=== PATIENT | male | born 1965 | race African-American/Black ===

== ENCOUNTER 2016-12-29 00:55 | Inpatient (IN) | payer OTHER ==
[2016-12-29] VITALS (7 sets, daily range): BP systolic 115–142; BP diastolic 63–85; PULSE 66–97; RESP 18–19; TEMP 98.7–99; O2SAT 94–98
[~2016-12-29] VITALS: Ht 177.8 cm; Wt 67.1 kg
[2016-12-29 03:51] LABS: AUTOMATED NEUTROPHIL # 3.1 TH/MM3 (1.8-7.7); BASOPHIL % 0.4 % (0.0-2.0); EOSINOPHIL # 0.2 TH/MM3 (0-0.4); EOSINOPHIL % 3.4 % (0.0-4.0); HEMATOCRIT 41.3 % (39.0-51.0); HEMO FLAGS DIFF FINAL; LYMPH % 41.3 % (9.0-44.0); LYMPHOCYTE # 2.8 TH/MM3 (1.0-4.8); MEAN CELL VOLUME 85.4 FL (80.0-100.0); MONO % 9.5 % (0.0-8.0); NEUT % 45.4 % (16.0-70.0); PLATELET COUNT 253 TH/MM3 (150-450); RED BLOOD COUNT 4.84 MIL/MM3 (4.50-5.90); RED CELL DISTRIBUTION WIDTH 14.1 % (11.6-17.2); WHITE BLOOD COUNT 6.8 TH/MM3 (4.0-11.0)
[2016-12-29 04:07] LABS: ALT (GPT) 81 U/L (12-78); ANION GAP 10 MEQ/L (5-15); AST (GOT) 57 U/L (15-37); BICARBONATE 27.7 MEQ/L (21.0-32.0); BLOOD UREA NITROGEN 8 MG/DL (7-18); CHLORIDE 105 MEQ/L (98-107); GLOMERULAR FILTRATION RATE 80 ML/MIN (>89); POTASSIUM 4.1 MEQ/L (3.5-5.1); SODIUM (NA) 143 MEQ/L (136-145)
[2016-12-29 04:09] LABS: ALKALINE PHOSPHATASE 94 U/L (45-117); TOTAL BILIRUBIN ADULT 0.3 MG/DL (0.2-1.0)
[2016-12-29 04:14] LABS: ACETAMINOPHEN LESS THAN 2.0 MCG/ML (10.0-30.0)
--- NOTE | 2016-12-29 04:54 | PD ---
HPI Chief Complaint: Psychiatric Symptoms Time Seen by Provider: 04:44 Travel History International Travel<30 days: No Contact w/Intl Traveler<30days: No Traveled to known affect area: No History of Present Illness HPI 51-year-old black male presents to emergency department under Alejandra act by . The patient states that he's been feeling increasingly depressed and having suicidal thoughts. He states that he slipped in the [facility] area for approximately 6 years. He states that friends houses on various occasions. He just was incarcerated a few weeks ago after being involved in an altercation. He states that he had been off his medications for his bipolar disorder as well as schizophrenia. He was started back on his medicines and given a one-week supply. He ran out of his medications he did not follow-up. He states that he is having more problems with his bipolar. When he was discharged he was advised to follow-up with Luis Thompson/diego. The patient admits to a history of substance abuse including marijuana, cocaine, alcohol and tobacco. The patient does not have any current plan on self-harm.. The patient denies any active medical complaints. No homicidal ideation. No toxic ingestion. [facility] Past Medical History Narrative Medical Bipolar, schizophrenia Bipolar Disorder: Yes Hypertension: Yes Schizophrenia: Yes Tetanus Vaccination: < 5 Years Influenza Vaccination: No Past Surgical History Surgical History: No Previous Surgery Social History Alcohol Use: Yes Tobacco Use: Yes Substance Use: Yes Review of Systems Except as stated in HPI: all other systems reviewed are Neg Psychiatric: Positive: Depression, Suicidal Ideations, Disorder of Thought, Mood Disorder, Substance Abuse, Other, No: Anxiety Physical Exam Narrative GENERAL: Well-nourished, well-developed patient. The patient resting comfortably examination room sleeping. SKIN: Warm and dry. HEAD: Normocephalic and atraumatic. EYES: No scleral icterus. No injection or drainage. ENT: No nasal drainage noted. Mucous membranes pink. Airway patent. NECK: Supple, trachea midline. Moves head freely without obvious discomfort. CARDIOVASCULAR: Regular rate and rhythm without murmurs, gallops, or rubs. RESPIRATORY: Breath sounds equal bilaterally. No accessory muscle use. GASTROINTESTINAL: Abdomen soft, non-tender, nondistended. EXTREMITIES: No cyanosis or edema. BACK: Nontender without obvious deformity. No CVA tenderness. NEURO: Patient is alert and oriented. no sensorimotor deficits. Nonfocal. Normal speech. PSYCH: No delusions. No auditory or visual hallucinations. Data Data Last Documented VS Vital Signs Date Time Temp Pulse Resp B/P Pulse Ox O2 Delivery O2 Flow Rate FiO2 12/29/16 01:55 98.7 97 18 140/76 98 Orders Complete Blood Count With Diff (12/29/16 03:20) Comprehensive Metabolic Panel (12/29/16 03:20) Psych Screen (12/29/16 03:20) Drug Screen, Random Urine (12/29/16 03:20) Alcohol (Ethanol) (12/29/16 03:20) Salicylates (Aspirin) (12/29/16 03:20) Tylenol (Acetaminophen) (12/29/16 03:20) Valproic Acid (Depakene) (12/29/16 04:37) Labs Laboratory Tests Test 12/29/16 01:15 White Blood Count 6.8 TH/MM3 Red Blood Count 4.84 MIL/MM3 Hemoglobin 14.0 GM/DL Hematocrit 41.3 % Mean Corpuscular Volume 85.4 FL Mean Corpuscular Hemoglobin 29.0 PG Mean Corpuscular Hemoglobin 34.0 % Concent Red Cell Distribution Width 14.1 % Platelet Count 253 TH/MM3 Mean Platelet Volume 7.9 FL Neutrophils (%) (Auto) 45.4 % Lymphocytes (%) (Auto) 41.3 % Monocytes (%) (Auto) 9.5 % Eosinophils (%) (Auto) 3.4 % Basophils (%) (Auto) 0.4 % Neutrophils # (Auto) 3.1 TH/MM3 Lymphocytes # (Auto) 2.8 TH/MM3 Monocytes # (Auto) 0.7 TH/MM3 Eosinophils # (Auto) 0.2 TH/MM3 Basophils # (Auto) 0.0 TH/MM3 CBC Comment DIFF FINAL Differential Comment Sodium Level 143 MEQ/L Potassium Level 4.1 MEQ/L Chloride Level 105 MEQ/L Carbon Dioxide Level 27.7 MEQ/L Anion Gap 10 MEQ/L Blood Urea Nitrogen 8 MG/DL Creatinine 1.18 MG/DL Estimat Glomerular Filtration 80 ML/MIN Rate Random Glucose 82 MG/DL Calcium Level 9.2 MG/DL Total Bilirubin 0.3 MG/DL Aspartate Amino Transf 57 U/L (AST/SGOT) Alanine Aminotransferase 81 U/L (ALT/SGPT) Alkaline Phosphatase 94 U/L Total Protein 8.4 GM/DL Albumin 3.8 GM/DL Salicylates Level 3.4 MG/DL Acetaminophen Level LESS THAN 2.0 MCG/ML Ethyl Alcohol Level 211 MG/DL MDM Medical Decision Making Medical Screen Exam Complete: Yes Emergency Medical Condition: Yes Medical Record Reviewed: Yes Interpretation(s) Laboratory Tests Test 12/29/16 01:15 White Blood Count 6.8 TH/MM3 Red Blood Count 4.84 MIL/MM3 Hemoglobin 14.0 GM/DL Hematocrit 41.3 % Mean Corpuscular Volume 85.4 FL Mean Corpuscular Hemoglobin 29.0 PG Mean Corpuscular Hemoglobin 34.0 % Concent Red Cell Distribution Width 14.1 % Platelet Count 253 TH/MM3 Mean Platelet Volume 7.9 FL Neutrophils (%) (Auto) 45.4 % Lymphocytes (%) (Auto) 41.3 % Monocytes (%) (Auto) 9.5 % Eosinophils (%) (Auto) 3.4 % Basophils (%) (Auto) 0.4 % Neutrophils # (Auto) 3.1 TH/MM3 Lymphocytes # (Auto) 2.8 TH/MM3 Monocytes # (Auto) 0.7 TH/MM3 Eosinophils # (Auto) 0.2 TH/MM3 Basophils # (Auto) 0.0 TH/MM3 CBC Comment DIFF FINAL Differential Comment Sodium Level 143 MEQ/L Potassium Level 4.1 MEQ/L Chloride Level 105 MEQ/L Carbon Dioxide Level 27.7 MEQ/L Anion Gap 10 MEQ/L Blood Urea Nitrogen 8 MG/DL Creatinine 1.18 MG/DL Estimat Glomerular Filtration 80 ML/MIN Rate Random Glucose 82 MG/DL Calcium Level 9.2 MG/DL Total Bilirubin 0.3 MG/DL Aspartate Amino Transf 57 U/L (AST/SGOT) Alanine Aminotransferase 81 U/L (ALT/SGPT) Alkaline Phosphatase 94 U/L Total Protein 8.4 GM/DL Albumin 3.8 GM/DL Salicylates Level 3.4 MG/DL Acetaminophen Level LESS THAN 2.0 MCG/ML Ethyl Alcohol Level 211 MG/DL Differential Diagnosis MDM: High Differential diagnoses: Schizophrenia, schizoaffective disorder, bipolar, anxiety, depression, adjustment reaction, mood disorder NOS, ODD, depressive disorder NOS, dementia, dementia with agitation, psychosis NOS, substance induced mood disorder, intermittent explosive disorder, Asperger syndrome, infection,electrolyte abnormality, malingering. Narrative Course Mental health screening discussed with the patient. Psychiatric screen ordered. The patient is been medically cleared. This is bipolar-depressed, substance abuse Diagnosis Primary Impression: Bipolar affect, depressed Additional Impression: Substance abuse Condition: Stable Fernando Lin Dec 29, 2016 04:53
[2016-12-29] MEDS ORDERED: ZYPR2.5T2 PO (06:22)
[2016-12-29] MEDS ORDERED: DIVA250ER PO (06:22)
[2016-12-29 06:49] LABS: AMPHETAMINE, URINE NEG (NEG); BARBITURATES, URINE NEG (NEG); COCAINE, URINE POS (NEG)
[2016-12-30 02:00] VITALS: BP 145/75; PULSE 61; RESP 18; O2SAT 97
[2016-12-30 06:17] VITALS: BP 127/72; PULSE 76; RESP 17; O2SAT 98
[2016-12-30 11:44] VITALS: BP 136/78; PULSE 74; RESP 16; TEMP 97.6
[2016-12-30] MEDS ORDERED: ACETAMINOPHEN 325 MG TAB PO PRN (15:45)
[2016-12-30] MEDS ORDERED: ALUMINUM/MAGNESIUM/SIMETH 30 ML CUP PO PRN (15:45)
[2016-12-30] MEDS ORDERED: LORazepam 2 MG/ML VIAL IM PRN (15:45)
[2016-12-30] MEDS ORDERED: MAGNESIUM HYDROXIDE SUSP 30 ML CUP PO PRN (15:45)
[2016-12-30] MEDS ORDERED: LORazepam 1 MG TAB PO PRN (15:45)
[2016-12-31 05:33] VITALS: BP 149/82; PULSE 70; RESP 18; TEMP 98.8; O2SAT 99
[2016-12-31] MEDS: NICOTINE 21 MG/24 HR PATCH T-DERMAL SCH (08:35)
[2016-12-31 08:57] LABS: ANION GAP 7 MEQ/L (5-15); BICARBONATE 31.9 MEQ/L (21.0-32.0); BLOOD UREA NITROGEN 9 MG/DL (7-18); CHLORIDE 101 MEQ/L (98-107); GLOMERULAR FILTRATION RATE 77 ML/MIN (>89); POTASSIUM 4.1 MEQ/L (3.5-5.1); SODIUM (NA) 140 MEQ/L (136-145)
[2016-12-31 09:01] LABS: HDL CHOLESTEROL 63.9 MG/DL (40.0-60.0); LDL CHOLESTEROL 102 MG/DL (0-99)
[2016-12-31 10:07] LABS: HEMOGLOBIN A1a 0.8 %; HEMOGLOBIN A1b 1.4 %; HEMOGLOBIN Ao 85.9 %; HEMOGLOBIN P3 3.4 %
--- NOTE | 2016-12-31 11:08 | HHI.HP ---
Provisional Diagnosis Admission Date Dec 30, 2016 at 15:21 [place]. Bipolar disorder, mixed type without psychotic features. Certification of Person's Competence To Provide Express and Informed Consent I have personally examined Niko Fung , a person being served at [facility] on, Dec 31, 2016 10:59. Express and informed consent means consent voluntarily given in writing, by a competent person, after sufficient explanation and disclosure of the subject matter involved to enable the person to make a knowing and willful decision without any element of force, fraud, deceit, duress, or other form of constraint or coercion. This person is 18 years of age or older, is not now known to be incompetent to consent to treatment with a guardian advocate, and does not have a health care surrogate or proxy currently making medical treatment decisions. I have found this person to be one of the following: [x] Competent to provide express and informed consent, as defined above, for voluntary admission to this facility and is competent to provide express and informed consent for treatment. He/she has the consistent capacity to make well reasoned, willful, and knowing decisions concerning his or her medical or mental health treatment. The person fully and consistently understands the purpose of the admission for examination/placement and is fully capable of personally exercising all rights assured [place] Incompetent to provide express and informed consent to voluntary admission, and this is incompetent to provide express and informed consent to treatment. The person must be transferred to involuntary status and a petition for a guardian advocate filed with the Circuit Court. [] Refusing to provide express and informed consent to voluntary admission but is competent to provide express and informed consent for treatment. The person must be discharged or transferred to involuntary status. Form shall be completed within 24 hours of a person's arrival at the receiving facility and filed in the clinical record of each person: 1. Admitted on a voluntary basis 2. Permitted to provide express and informed consent to his/her own treatment 3. Allowed to transfer from involuntary to voluntary status 4. Prior to permitting a person to consent to his or her own treatment after having been previously found incompetent to consent to treatment. History of Present Illness Capacity: Has Capacity HPI Patient was apparently Roberts acted for making some type of suicidal threat. He is a 51-year-old male with a long history of bipolar disorder and/or schizophrenia. Apparently he and his got into a verbal altercation and they are no longer together. He is also unemployed and now living on the streets. He has been unable to obtain his medications and therefore has not been taking any of his standard psychotropic meds for days. At this point he is depressed, homeless, without social support and feeling suicidal. He is willing to verbally contract for safety while in the hospital. However he describes symptoms of anhedonia, loss of energy, loss of motivation, diminished self-esteem, social withdrawal, impaired sleep and impaired appetite, and difficulty with concentration and memory. He would like to return to taking his Zyprexa at bedtime, 10 mg, and this physician agrees. However he wants to try to be stabilized without the use of Depakote and again this physician agrees. Finally, the patient again denies any place to stay and does not feel he has family support that we can contact Review of Systems ROS Limitations: Clinical Condition Except as stated in HPI: all other systems reviewed are Neg Past Psych History Psychological trauma history Denied. Violence risk - others (6 mos) Minimal Violence risk - self (6 mos) Moderate Substance Abuse History Drugs/Alcohol past 12 months Patient does admit to a history of cocaine abuse and marijuana abuse as well as alcohol abuse. Past Family Social History Coded Allergies: No Known Allergies (Unverified , 12/29/16) PT DENIES ANY ALLERGIES Reported Medications Divalproex ER (Depakote ER)250 Mg Ieoph992 Mg PO DAILY #30 TAB Ref 0 12/29/16 Olanzapine (Zyprexa)2.5 Mg Tab2.5 Mg PO BID #60 TAB Ref 0 12/29/16 Current Medications Medications (Trade) Dose Ordered Sig/Kwesi Route Start Time Stop Time Status Last Admin (Ativan) 1 mg Q6H PRN PO 12/30/16 15:45 (Ativan Inj) 1 mg Q6H PRN IM 12/30/16 15:45 (Tylenol) 650 mg Q4H PRN PO 12/30/16 15:45 (Milk Of Magnesia Liq) 30 ml DAILY PRN PO 12/30/16 15:45 (Mag-Al Plus Susp Liq) 30 ml Q6H PRN PO 12/30/16 15:45 (Habitrol 21 Mg Patch.24 Hr) 1 patch DAILY T-DERMAL 12/31/16 09:00 Miscellaneous Information 1 HS T-DERMAL 12/31/16 21:00 Family History Positive for mood disorder. Social History See history of present illness. The patient and his have broken up. He is homeless. He has no job. He has a reported income from Social Security disability. He has abused cocaine and alcohol and marijuana. Patient's Strengths (min. 2) Verbal and resilient. Physical Exam GENERAL: SKIN: Warm and dry. HEAD: Normocephalic. EYES: No scleral icterus. No injection or drainage. NECK: Supple, trachea midline. No JVD or lymphadenopathy. CARDIOVASCULAR: Regular rate and rhythm without murmurs, gallops, or rubs. RESPIRATORY: Breath sounds equal bilaterally. No accessory muscle use. GASTROINTESTINAL: Abdomen soft, non-tender, nondistended. MUSCULOSKELETAL: No cyanosis, or edema. BACK: Nontender without obvious deformity. No CVA tenderness. Vital Signs Vital Signs Date Time Temp Pulse Resp B/P Pulse Ox O2 Delivery O2 Flow Rate FiO2 12/31/16 05:33 98.8 70 18 149/82 99 12/30/16 11:44 Room Air Mental Status Examination Speech: Unremarkable Orientation: x3 Memory: Unremarkable Thought Process: Organized, Goal Directed Thought Content: Unremarkable Hallucination Type: None Attention and Concentration: Good Suicidal Ideation: Yes Previous Suicide Attempts: Yes Homicidal Ideation: No Previous Homicide Attempts: No Insight: Fair Judgement: WNL, Unrealistic Affect: Anxious, Sad Affect if Inappropriate: Blunt Mood: Sad Motor Activity: Normal gait Assessment & Plan Problem List: (1) Bipolar affect, depressed ICD Code: F31.30 Assessment & Plan Estimated LOS: days patient has been off his medications and become increasingly depressed and suicidal. He is requesting we put him back on Zyprexa 10 mg daily at bedtime and this physician agrees. He will be observed for other factors contributing to his depression including drugs and alcohol. He will also be evaluated for psychotic symptoms because he has demonstrated psychosis in the past. We will evaluate him for the need for Depakote. Its anticipated, the hospital for 3-4 days. Problem Qualifiers (1) Bipolar affect, depressed: Michael Fisher MD Dec 31, 2016 11:08
[2016-12-31 18:00] VITALS: BP 149/75; PULSE 75; RESP 18; TEMP 98.3; O2SAT 98
[2016-12-31] MEDS: OLANZapine 10 MG TAB PO SCH (21:00)
[2016-12-31] MEDS: REMOVE OLD NICOTINE PATCH T-DERMAL SCH (21:00)
[2017-01-01 05:46] VITALS: BP 148/85; PULSE 60; RESP 17; TEMP 97.6; O2SAT 100
[2017-01-01] MEDS: NICOTINE 21 MG/24 HR PATCH T-DERMAL SCH (09:00)
--- NOTE | 2017-01-01 13:20 | HHI.PYPN ---
Subjective Remarks Pt seen and discussed with staff. He remains depressed and dysphoric but reports that he is tolerating olanzapine and slept well last night. He reports decreased irritability today. No medication side effects. He denies SI/HI today. Review of Systems Psychiatric: COMPLAINS OF: Depression Objective Alert: Yes [place]: Person, Place, Date, Situation Mood: Depressed Affect: Restricted Memory Intact: Immediate, Recent, Remote Hallucinations: Other (none) Delusions: No Delusion Type: Other (none) Suicidal: Ideation (denies) Homicidal: Ideation (denies) Insight/Judgement poor Vitals/IOs Vital Signs Date Time Temp Pulse Resp B/P Pulse Ox O2 Delivery O2 Flow Rate FiO2 01/01/17 05:46 97.6 60 17 148/85 100 12/30/16 11:44 Room Air Assessment & Plan Problem List: (1) Bipolar affect, depressed ICD Code: F31.30 Assessment & Plan Continue current tx plan. Estimated LOS: days Justification for Cont. Inpt. observation for safety. Monitoring as started new medication. Problem Qualifiers (1) Bipolar affect, depressed: Marija Méndez MD Jan 01, 2017 13:20
[2017-01-01 15:15] VITALS: BP 126/78; PULSE 77; RESP 18; TEMP 98.7; O2SAT 100
[2017-01-01 19:54] VITALS: BP 126/78; PULSE 77; RESP 18; TEMP 98.7
[2017-01-01] MEDS: OLANZapine 10 MG TAB PO SCH (20:23)
[2017-01-01] MEDS: REMOVE OLD NICOTINE PATCH T-DERMAL SCH (21:00)
[2017-01-02 05:56] VITALS: BP 136/80; PULSE 73; RESP 18; TEMP 98.2; O2SAT 99
[2017-01-02] MEDS: NICOTINE 21 MG/24 HR PATCH T-DERMAL SCH (08:51)
[2017-01-02 16:28] VITALS: BP 123/74; PULSE 81; RESP 18; TEMP 98.2; O2SAT 99
[2017-01-02] MEDS: REMOVE OLD NICOTINE PATCH T-DERMAL SCH (20:33)
[2017-01-02] MEDS: OLANZapine 10 MG TAB PO SCH (20:33)
--- NOTE | 2017-01-02 23:22 | HHI.PYPN ---
Subjective Remarks Pt seen and discussed with staff. He remains withdrawn and depressed but reports mood improving and he denies SI/HI. No medication side effects. Objective Alert: Yes [place]: Person, Place, Date, Situation Mood: Depressed Affect: Restricted Memory Intact: Immediate, Recent, Remote Hallucinations: Other (none) Delusions: No Delusion Type: Other (none) Suicidal: Ideation (denies) Homicidal: Ideation (denies) Insight/Judgement poor Vitals/IOs Vital Signs Date Time Temp Pulse Resp B/P Pulse Ox O2 Delivery O2 Flow Rate FiO2 01/02/17 16:28 98.2 81 18 123/74 99 12/30/16 11:44 Room Air Assessment & Plan Problem List: (1) Bipolar affect, depressed ICD Code: F31.30 Assessment & Plan Continue current tx plan. Estimated LOS: days Justification for Cont. Inpt. monitoring for saety Problem Qualifiers (1) Bipolar affect, depressed: Marija Méndez MD Jan 02, 2017 23:22
[2017-01-03 06:44] VITALS: BP 147/79; PULSE 78; RESP 20; TEMP 97.9; O2SAT 97
[2017-01-03] MEDS: NICOTINE 21 MG/24 HR PATCH T-DERMAL SCH (09:00)
[2017-01-03] MEDS ORDERED: OLAN10TA PO (10:36)
--- NOTE | 2017-01-03 10:44 | HHI.DS ---
Psychiatry Discharge Summary Inpatient Psychiatric care?: Yes Advance Directive: No Reason Not Provided: none Mental Health AdvanceDirective: No Health Care Proxy: No Admission Admission Date Dec 30, 2016 at 15:21 Admission Diagnosis: (1) Bipolar affect, depressed ICD Code: F31.30 Brief History Patient was apparently Roberts acted for making some type of suicidal threat. He is a 51-year-old male with a long history of bipolar disorder and/or schizophrenia. Apparently he and his got into a verbal altercation and they are no longer together. He is also unemployed and now living on the streets. He has been unable to obtain his medications and therefore has not been taking any of his standard psychotropic meds for days. At this point he is depressed, homeless, without social support and feeling suicidal. He is willing to verbally contract for safety while in the hospital. However he describes symptoms of anhedonia, loss of energy, loss of motivation, diminished self-esteem, social withdrawal, impaired sleep and impaired appetite, and difficulty with concentration and memory. He would like to return to taking his Zyprexa at bedtime, 10 mg, and this physician agrees. However he wants to try to be stabilized without the use of Depakote and again this physician agrees. Finally, the patient again denies any place to stay and does not feel he has family support that we can contact Tobacco Use In Past 30 Days: 5 or More Cigarettes/Day Alcohol Use: Monthly or Less Hospital Course Patient did well during his hospital course. He was placed on Zyprexa 10 mg per day. He participated actively in individual and group therapies. At the time of discharge he no longer met inpatient criteria and wanted to return to his mother's home. He was referred for outpatient follow up. Results Blood Pressure 147 / 79 Vital Signs Date Time Temp Pulse Resp B/P Pulse Ox O2 Delivery O2 Flow Rate FiO2 01/03/17 06:44 97.9 78 20 147/79 97 12/30/16 11:44 Room Air Laboratory Results Test 12/31/16 08:12 Hemoglobin A1c 5.3 % (4.3-6.0) Triglycerides Level 138 MG/DL (42-150) Cholesterol Level 193 MG/DL (120-200) LDL Cholesterol 102 MG/DL (0-99) HDL Cholesterol 63.9 MG/DL (40.0-60.0) Summary of Procedures None Pending results at discharge: No Medications # of Antipsychotic meds at D/C: 1 Appropriate >1 Antipsych meds?: 1 Approp Antipsych med options 1 - Minimum of three failed multiple trials of monotherapy. 2 - Documented plan to taper to monotherapy due to previous use of multiple meds OR cross-taper in progress at D/C. 3 - Documentation of augmentation of Clozapine. 4 - Justification other than those listed in allowable values 1-3, document here : Discharge Discharge Date: Jan 03, 2017 Discharge Diagnosis: (1) Bipolar affect, depressed Diagnosis: Principal ICD Code: F31.30 Mental Status Exam at Disch Patient was pleasant and cooperative at the time of discharge. He reports feeling significantly improved since his admission. He is stabilized on his olanzapine. He plans to live with his mother and can seek follow up treatment from her home, as an outpatient. He contracted for safety and shows no evidence of psychotic thinking. His cognition is intact. Pt Condition on Discharge: Stable Discharge Disposition: Discharge Home Discharge Instructions Diet Instructions: As Tolerated, No Restrictions Activities you can perform: Regular-No Restrictions Discharge Time <= 30 minutes Discharge/Advance Care Plan Health Problems: (1) Bipolar affect, depressed Goals to promote your health * To prevent worsening of your condition and complications * To maintain your health at the optimal level Directions to meet your goals Take your medications as prescribed Follow your dietary instruction Follow activity as directed Keep your appointments as scheduled Take your immunizations and boosters as scheduled If your symptoms worsen call your PCP, if no PCP go to Urgent Care Center or Emergency Room For 23/05 questions related to your inpatient stay or results of tests pending at discharge, please contact Dr. Michael Fisher at Smoking is Dangerous to Your Health. Avoid second hand smoking Problem Qualifiers (1) Bipolar affect, depressed: Michael Fisher MD Jan 03, 2017 10:43
== END 2017-01-03 14:40 | disposition home or self-care (01) | DRG 885 ==
LOC: NEPA 00:55 → NEDA 12-30 15:21 → H270 12-30 17:55
PROVIDERS: ADMIT Psychiatry & Neurology Psychiatry; ATTEND Psychiatry & Neurology Psychiatry
DX: F31.9 Bipolar disorder, unspecified (principal); R45.851 Suicidal ideations; I10 Essential (primary) hypertension; F20.9 Schizophrenia, unspecified; F17.200 Nicotine dependence, unspecified, uncomplicated; Z59.0 Homelessness
CPT/HCPCS: 80048; 80053; 80061; 80164; 80307; 80320; 80329; 83036; 85025; 99284; G0480